=== PATIENT | female | born 1945 | race Caucasian/White ===

== ENCOUNTER 2019-03-31 13:43 | Emergency (ER) | payer OTHER ==
[~2019-03-31] VITALS: Ht 152.4 cm; Wt 88.0 kg
[~2019-03-31 13:43] MED LIST: ATORVASTATIN CA80 MG; ATROVENT 00.5 MG/2.5 IH; AVAPRO300 MG; AZITHROMYCIN250 MG PO; CEFDINIR300 MG PO; CEFPROZIL500 MG; CLONIDINE HCL0.1 MG; DILTIAZEM 24HR360 M1; DOXAZOSIN MESYLA8 MG; FLOVENT DISKU100 MCG IH; GABAPENTIN100 MG; GABAPENTIN400 MG; HYDRALAZINE HCL25 MG; HYDROCHLOROTHIA25 GM; JENTADUETO 2.51 EAC2; LEVAQUIN500 MG PO; LIPO-FLAVONOID1 EACH PO; MECLIZINE HCL25 MG PO; MONTELUKAST SOD10 MG; MUCINEX100 MG/5 M; Medrol dose pak; SIMVASTATIN10 MG; SINGULAIR10 MG PO; VENTOLIN HFA18 GM IH; XOPENEX0.63 MG/3; XOPENEX0.63 MG/3 IH; ZETIA10 MG
[2019-03-31] MEDS ORDERED: GABAPENTIN400 MG PO (14:20)
[2019-03-31] MEDS ORDERED: PRESERVISION A1 EAC1 PO (14:21)
[2019-03-31] MEDS ORDERED: GLIMEPIRIDE4 MG PO (14:21)
[2019-03-31] MEDS ORDERED: HYDRALAZINE HCL25 MG PO (14:21)
[2019-03-31] MEDS ORDERED: HYDROCHLOROTHIA25 MG PO (14:22)
[2019-03-31] MEDS ORDERED: EZETIMIBE10 MG PO (14:22)
[2019-03-31] MEDS ORDERED: LIPITOR80 MG PO (14:23)
[2019-03-31] MEDS ORDERED: JENTADUETO 2.51 EAC2 PO (14:23)
[2019-03-31] MEDS ORDERED: SINGULAIR 10MG10 MG PO (14:23)
== END 2019-03-31 19:22 | disposition home or self-care (01) ==
LOC: ER 13:43
DX: E11.649 Type 2 diabetes mellitus with hypoglycemia without coma (principal); N39.0 Urinary tract infection, site not specified; R53.1 Weakness

== ENCOUNTER → 2019-04-12 | Emergency (ER) | payer OTHER ==
[~2019-04-12] VITALS: Ht 152.4 cm; Wt 83.0 kg
[~2019-04-12] MED LIST changes: +EZETIMIBE10 MG PO; +GABAPENTIN400 MG PO; +GLIMEPIRIDE4 MG PO; +HYDRALAZINE HCL25 MG PO; +HYDROCHLOROTHIA25 MG PO; +JENTADUETO 2.51 EAC2 PO; +LIPITOR80 MG PO; +PRESERVISION A1 EAC1 PO; +SINGULAIR 10MG10 MG PO
== END | disposition left against medical advice (07) ==
LOC: ER 17:55
DX: Z53.20 Procedure and treatment not carried out because of patient's decision for unspecified reasons (principal)